=== PATIENT | female | born 1950 | race Two or more races ===

== ENCOUNTER 2023-04-08 05:55 | Inpatient (IN) | payer OTHER ==
[~2023-04-08] VITALS: Ht 152.4 cm; Wt 63.5 kg
[~2023-04-08 05:55] MED LIST: CRESTOR40 MG PO; GABAPENT PO; HYZAAR 100-251 EACH PO; NORVASC2.5 M1 PO; PREVAC PO
[2023-04-08] MEDS ORDERED: GABAPENTIN800 M1 (13:01)
[2023-04-08] MEDS ORDERED: CLONAZEPAM0.5 M1 (13:02)
[2023-04-08] MEDS ORDERED: TIZANIDINE HCL4 MG (13:02)
[2023-04-08] MEDS ORDERED: LANSOPRAZOLE30 MG (13:02)
== END 2023-04-10 11:08 | disposition home or self-care (01) | DRG 580 ==
LOC: CIR.AMB 05:55 → O/R 12:42 → OB/GYN 12:42
PROVIDERS: Obstetrics & Gynecology; ADMIT Obstetrics & Gynecology Gynecologic Oncology; ATTEND Obstetrics & Gynecology Gynecologic Oncology
PROC: 0UT74ZZ Resection of Bilateral Fallopian Tubes, Percutaneous Endoscopic Approach (ICD-10-PCS; 2023-04-08)
PROC: 0DNW4ZZ Release Peritoneum, Percutaneous Endoscopic Approach (ICD-10-PCS; 2023-04-08)
PROC: 0DN84ZZ Release Small Intestine, Percutaneous Endoscopic Approach (ICD-10-PCS; 2023-04-08)
PROC: 0DQ84ZZ Repair Small Intestine, Percutaneous Endoscopic Approach (ICD-10-PCS; 2023-04-08)
PROC: 0UT24ZZ Resection of Bilateral Ovaries, Percutaneous Endoscopic Approach (ICD-10-PCS; principal; 2023-04-08 10:00)
DX: C50.911 Malignant neoplasm of unspecified site of right female breast (principal); K91.72 Accidental puncture and laceration of a digestive system organ or structure during other procedure; Z15.09 Genetic susceptibility to other malignant neoplasm; Z15.02 Genetic susceptibility to malignant neoplasm of ovary; Z20.822 Contact with and (suspected) exposure to COVID-19; N73.6 Female pelvic peritoneal adhesions (postinfective)